=== PATIENT | female | born 1945 | race Caucasian/White ===

== ENCOUNTER 2020-06-19 16:14 | Emergency (ER) | payer OTHER ==
[~2020-06-19] VITALS: Ht 165.1 cm; Wt 82.1 kg
--- NOTE | 2020-06-19 16:14 | NUR ---
PT DEEPTHI FROM HOME C/O WEAKNESS "WE FOUND HER LAYING ON THE FLOOR" PT IS AAOX2, NOT IN RESPIRATORY DISTRESS, HOOKED TO COMPUTER TECH, KEPT RESTED AND COMFORTABLE. WILL CONTINUE TO MONITOR.
--- NOTE | 2020-06-19 16:36 | NUR ---
Actuarial Mathematician: Neighbor Maryjane Lowe [phone]
[2020-06-19 16:42] LABS: BASOPHILS # (AUTO) 0.1 /CMM (0.0-0.2); BASOPHILS % (AUTO) 0.7 % (0.0-2.0); HEMATOCRIT 43 % (33-45); HEMOGLOBIN 14.5 g/dL (11.5-14.8); LYMPHOCYTES # (AUTO) 0.9 /CMM (0.8-4.8); LYMPHOCYTES % (AUTO) 12.8 % (20.0-44.0); MEAN CORPUSCULAR HGB CONC 34 g/dl (31.0-36.0); MEAN CORPUSCULAR VOLUME 86 fL (82-100); MONOCYTES # (AUTO) 1.1 /CMM (0.1-1.30); MONOCYTES % (AUTO) 14.6 % (2.0-12.0); NEUTROPHILS # (AUTO) 5.2 /CMM (1.8-8.9); NEUTROPHILS % (AUTO) 71.9 % (43.0-81.0); PLATELET COUNT (AUTO) 284 /CMM (150-450); RED BLOOD CELL COUNT(AUTO) 4.96 MIL/uL (4.0-5.2); WHITE BLOOD COUNT (AUTO) 7.3 K/uL (4.3-11.0)
--- NOTE | 2020-06-19 16:45 | NUR ---
IV LINE ESTABLISHED BLOOD DRAWN AND SENT TO LAB.
[2020-06-19 16:49] LABS: CALCIUM, SERUM 8.6 mg/dL (8.5-10.1); CARBON DIOXIDE 30 mmol/L (21-32); CHLORIDE 102 mmol/L (98-107); GLUCOSE 99 mg/dL (74-106); POTASSIUM 3.1 mmol/L (3.5-5.1); SODIUM SERUM 141 mmol/L (136-145); UREA NITROGEN, BLOOD 22 mg/dL (7-18)
--- NOTE | 2020-06-19 16:49 | NUR ---
ekg at bedside
[2020-06-19 16:56] LABS: ALANINE AMINOTRANSFERASE 74 U/L (12-78); ALKALINE PHOSPHATASE 91 U/L (46-116); ASPARTATE AMINOTRANSFERASE 105 U/L (15-37); BILIRUBIN,DIRECT 0.2 mg/dL (0.0-0.2); BILIRUBIN,TOTAL 0.7 mg/dL (0.2-1.0); TOTAL PROTEIN, SERUM 7.1 g/dL (6.4-8.2)
[2020-06-19] MEDS ORDERED: IV NS 0.9% 1,000 ML IV ONE (17:00)
[2020-06-19] MEDS ORDERED: AMLO-212 PO (17:33)
[2020-06-19] MEDS ORDERED: MONT10TA22 PO (17:33)
--- NOTE | 2020-06-19 18:05 | NUR ---
CALLED [facility] [phone] DORADO BACK.
[2020-06-19] MEDS ORDERED: CT SWABBABLE VALVE TRANS SET 1 EA INFUS.SET MC ONE (18:24)
[2020-06-19] MEDS ORDERED: IOHEXOL-350 100 ML VIAL IV ONE (18:24)
[2020-06-19] MEDS ORDERED: IV NS 0.9% 250 ML IV ONE (18:24)
--- NOTE | 2020-06-19 18:30 | NUR ---
PT IS WHEELED TO CT SCAN VIA [facility].
--- NOTE | 2020-06-19 19:08 | NUR ---
rec'd report from Ulices Amaro RN for kathe
--- NOTE | 2020-06-19 19:10 | NUR ---
REPORT GIVEN TO SUYAPA DALAL FOR IVY.
--- NOTE | 2020-06-19 19:13 | NUR ---
COVID RESULT: POSITIVE
[2020-06-19] MEDS ORDERED: ENOXAPARIN SODIUM 80 MG/0.8 ML DISP.SYRIN SQ ONE (19:30)
--- NOTE | 2020-06-19 20:02 | NUR ---
DDIMER 5.90. AWARE
[2020-06-19] MEDS ORDERED: ENOXAPARIN SODIUM 100 MG/ML DISP.SYRIN SQ ONE (20:18)
--- NOTE | 2020-06-19 21:17 | NUR ---
CALLED [facility], AWAITING BED ASSIGNMENT AT [facility]
--- NOTE | 2020-06-19 21:30 | NUR ---
[facility] 4057 BED B [phone] RECIEVING MD JULIO CESAR CHINCHILLA 1HR ETA [phone]
--- NOTE | 2020-06-19 21:44 | NUR ---
gave report to SUYAPA Rivero for kathe
--- NOTE | 2020-06-19 23:16 | NUR ---
gave report to SUYAPA Veira riding with ems.
[2020-06-19 23:17] VITALS: BP 137/69
== END 2020-06-19 23:20 | disposition short-term general hospital (02) ==
LOC: ER 16:15
DX: U07.1 COVID-19 (principal); J12.82 Pneumonia due to coronavirus disease 2019; R09.02 Hypoxemia; R55 Syncope and collapse; I26.94 Multiple subsegmental thrombotic pulmonary emboli without acute cor pulmonale; J32.9 Chronic sinusitis, unspecified; I11.9 Hypertensive heart disease without heart failure
CPT/HCPCS: 36415; 70450; 71045; 71275; 80048; 80076; 82962; 84484; 85025; 85378; 87081; 87426; 93005; 96360; 96372; 99285; C9803; J1650; J7030; J7050; Q9967

== ENCOUNTER 2020-09-24 10:02 | Emergency (ER) | payer OTHER ==
[~2020-09-24] VITALS: Ht 165.1 cm; Wt 78.9 kg
[~2020-09-24 10:02] MED LIST: AMLO-212 PO; MONT10TA22 PO
--- NOTE | 2020-09-24 10:12 | NUR ---
The patient [id number] home, found in floor,sts fell last night c/o RUE pain,+bruising. The patient rates pain 10/10. Denies numbness/tingling in the extremity. Respiration regular and unlabored. Attached to the monitor. Warm blanket provided for comfort. Will continue to monitor the patient.
[2020-09-24 10:49] LABS: BASOPHILS # (AUTO) 0.1 /CMM (0.0-0.2); BASOPHILS % (AUTO) 0.7 % (0.0-2.0); EOSINOPHILS % (AUTO) 0.5 % (0.0-6.0); HEMATOCRIT 41 % (33-45); HEMOGLOBIN 13.3 g/dL (11.5-14.8); LYMPHOCYTES % (AUTO) 15.5 % (20.0-44.0); MEAN CORPUSCULAR HGB CONC 33 g/dl (31.0-36.0); MEAN CORPUSCULAR VOLUME 88 fL (82-100); MONOCYTES # (AUTO) 1.8 /CMM (0.1-1.30); MONOCYTES % (AUTO) 14.2 % (2.0-12.0); NEUTROPHILS # (AUTO) 8.9 /CMM (1.8-8.9); NEUTROPHILS % (AUTO) 69.1 % (43.0-81.0); PLATELET COUNT (AUTO) 356 /CMM (150-450); RED BLOOD CELL COUNT(AUTO) 4.61 MIL/uL (4.0-5.2); WHITE BLOOD COUNT (AUTO) 12.9 K/uL (4.3-11.0)
[2020-09-24 10:55] LABS: CALCIUM, SERUM 9.1 mg/dL (8.5-10.1); CARBON DIOXIDE 29 mmol/L (21-32); CHLORIDE 103 mmol/L (98-107); CREATININE 0.7 mg/dL (0.6-1.3); GLUCOSE 110 mg/dL (74-106); POTASSIUM 3.8 mmol/L (3.5-5.1); SODIUM SERUM 140 mmol/L (136-145); UREA NITROGEN, BLOOD 18 mg/dL (7-18)
[2020-09-24 11:01] LABS: ALANINE AMINOTRANSFERASE 50 U/L (12-78); ALBUMIN 3.5 g/dL (3.4-5.0); ALKALINE PHOSPHATASE 106 U/L (46-116); ASPARTATE AMINOTRANSFERASE 32 U/L (15-37); BILIRUBIN,DIRECT 0.2 mg/dL (0.0-0.2); BILIRUBIN,TOTAL 0.7 mg/dL (0.2-1.0); TOTAL PROTEIN, SERUM 7.2 g/dL (6.4-8.2)
--- NOTE | 2020-09-24 11:20 | NUR ---
tylenol 1000 mg po given to RUE pain 12/16. will continue to monitor the patient.
[2020-09-24] MEDS ORDERED: ACETAMINOPHEN ES 500 MG TABLET ONE (11:22)
[2020-09-24] MEDS ORDERED: ACETAMINOPHEN ES 500 MG TABLET PO ONE (11:30)
--- NOTE | 2020-09-24 11:48 | NUR ---
FRAN PAIN 4/10 PER PATIENT AFTER TAKING ORDERED TYLENOL
[2020-09-24 11:53] LABS: CREATINE KINASE, TOTAL 194 U/L (26-192)
--- NOTE | 2020-09-24 12:11 | NUR ---
CALLED [facility] WAITING TO HEAR FORM [place] [facility].
--- NOTE | 2020-09-24 13:12 | NUR ---
GOING TO [facility] ER TO ER # FOR REPORT [phone] / DR [facility] ETA 30-45 MINS
[2020-09-24 13:20] VITALS: BP 137/82
--- NOTE | 2020-09-24 13:46 | NUR ---
LAB CALLED PT COVID RESULT NEGATIVE.
--- NOTE | 2020-09-24 13:53 | NUR ---
REPORT GIVEN TO NURSE MATTSON
--- NOTE | 2020-09-24 14:00 | NUR ---
[facility]
== END 2020-09-24 15:24 | disposition short-term general hospital (02) ==
LOC: ER 10:09
DX: S42.201A Unspecified fracture of upper end of right humerus, initial encounter for closed fracture (principal); W01.0XXA Fall on same level from slipping, tripping and stumbling without subsequent striking against object, initial encounter; Y92.039 Unspecified place in apartment as the place of occurrence of the external cause; G30.9 Alzheimer's disease, unspecified; F02.80 Dementia in other diseases classified elsewhere, unspecified severity, without behavioral disturbance, psychotic disturbance, mood disturbance, and anxiety; Z20.822 Contact with and (suspected) exposure to COVID-19; I11.9 Hypertensive heart disease without heart failure; R00.0 Tachycardia, unspecified
CPT/HCPCS: 36415; 70450; 71045; 72125; 73060; 80048; 80076; 82550; 84484; 85025; 85730; 87426; 93005; 99285; A6403; C9803